=== PATIENT | female | born 1955 | race Caucasian/White ===

== ENCOUNTER 2025-05-01 06:45 | Day surgery (SDC) | payer OTHER, MEDICAID ==
[2025-05-01] VITALS (7 sets, daily range): BP systolic 108–115; BP diastolic 62–69; PULSE 71–82; RESP 14–18; O2SAT 96–99
[~2025-05-01] VITALS: Ht 162.6 cm; Wt 95.7 kg
[~2025-05-01 06:45] MED LIST: ASPI-543 PO; ATOR20TA50 PO; BRIM0.159 OP; DICL1.3P TD; ESTR0.022 TD; FENO145T27 PO; GABA-1308 PO; GLIP5TAB21 PO; KETO2CRE4 TOP; LATA0.008 EACHEYE; LISI20TA56 PO; MAGN400T40 PO; MEDR10TA9 PO; METH-1181 PO; METO25TA93 PO; PANT40TA2 PO; TIZA4CAP PO
[2025-05-01] MEDS: IODIXANOL 320MG/ML 100ML BTL IV ONE ×2 (07:54→08:46)
[2025-05-01] MEDS: HEPARIN IN NS 1000Units/500mL 1,500 ML ONE (07:54)
[2025-05-01] MEDS: VERAPAMIL 2.5MG/ML INJ 2ML VIAL IV ONE (07:57)
[2025-05-01] MEDS: ANGIOMAX 250 MG VIAL IV ONE (07:57)
[2025-05-01] MEDS: MIDAZOLAM HCL 2MG/2ML 2ml VIAL (1mg/ml) ONE (07:57)
[2025-05-01] MEDS: HEPARIN SODIUM (PORCINE) 5000 UNITS/ML 1ML VIAL ONE (07:57)
[2025-05-01] MEDS: fentaNYL CITRATE 100 MCG/2 ML VL ONE (07:57)
[2025-05-01] MEDS: LIDOCAINE 2%HCL (LOCAL ANESTH.) INJ 20ML MDV ONE (07:57)
[2025-05-01] MEDS: SODIUM CHL 0.9% 0 ML ONE (07:57)
--- NOTE | 2025-05-01 09:00 | DVHOP2 ---
Operative Report Procedures performed: Left heart catheterization and bilateral coronary angiogram FFR of LAD and also FFR of RCA Moderate sedation Diagnosis: Nonobstructive coronary artery disease LVEF of 55% with normal EDP Cardiac suggestion for management: Optimized medical therapy Lifestyle and risk factor modifications Cardiac-barker, the patient is a low risk patient for moderate risk shoulder surgery Findings: LVEF: 55% LVEDP: 10 mm Hg Left main: Left main was coming off the left sinus of Valsalva. It was free of disease. LAD: LAD was coming off the left main. It provided a large branching diagonal. Proximal LAD had focal 30% lesion. At the junction of mid to distal LAD there was a focal 50% lesion (FFR was performed on this lesion and the result was 0.89 which points to hemodynamically nonsignificant lesion). Other portions of LAD and branches revealed mild diffuse disease. LCX: LCX was coming off the left main. LCX throughout its course and branches revealed minor luminal irregularities. RCA: RCA was coming off the right sinus of Valsalva. It was a dominant vessel and provided RPDA/RPLS. Mid LAD had a focal 35% lesion (FFR was performed and the result was 0.93 which points to hemodynamically nonsignificant lesion). Other portions of RCA and branches revealed minor luminal irregularities. Presentation: Patient is a 69-year-old female who presented to the office with dyspnea on exertion. She is to go for right shoulder surgery. Past medical history includes hypertension, hyperlipidemia, obesity, diabetes mellitus, GERD, DJD (right shoulder), CKD, old history of cholecystectomy/parathyroid adenoma excision/hysterectomy/bilateral oophorectomy/surgery for rectocele and vaginal prolapse. Echocardiogram of December 2024 revealed ejection fraction of 60-65%, normal diastolic function, right ventricle was mildly dilated with preserved systolic function, mild MR/TR and right ventricular systolic pressure of less than 35 mm Hg. Nuclear stress test of January 2025 was abnormal and the patient was sent for cardiac catheterization. Procedure: After obtaining informed consent, the patient was brought to the slab installer. She was prepped and draped in sterile fashion. Right radial artery was used for access site. 1 mg of Versed and 50 mcg of fentanyl were used for moderate sedation. Using Seldinger technique, the right radial artery was accessed and a 6 Filipino slender sheath was inserted into it. 2.5 mg of verapamil and 100 mcg of nitroglycerin were given as a cocktail into right radial sheath. 5000 units of heparin was given peripherally. Five Filipino tiger 4 catheter was used to perform left heart catheterization (obtaining pressures and performing left ventriculography) and bilateral coronary angiography. We did recognize diseases in mid LAD and mid RCA. We decided to proceed to perform FFR. Cathworks FFR was performed and the result for mid LAD lesion was 0.89 (pointing toward a hemodynamically nonsignificant lesion) and the result for mid RCA lesion was 0.93 (pointing to hemodynamically nonsignificant lesion). There was no indication for any transcatheter revascularization. There was no dissection/hematoma/perforation. Total bleeding was less than 10 mL. Patient tolerated the procedure with no complication. Right radial artery access site was managed by deploying TR band. Fluoroscopy time: 1.8 minutes contrast: 26 mL of AMOL Banks MD May 01, 2025 09:00
== END 2025-05-01 11:15 | disposition home or self-care (01) ==
LOC: CATH 06:45
PROVIDERS: ATTEND Internal Medicine Cardiovascular Disease
DX: I25.10 Atherosclerotic heart disease of native coronary artery without angina pectoris (principal); I12.9 Hypertensive chronic kidney disease with stage 1 through stage 4 chronic kidney disease, or unspecified chronic kidney disease; E11.22 Type 2 diabetes mellitus with diabetic chronic kidney disease; N18.9 Chronic kidney disease, unspecified; E66.9 Obesity, unspecified; E78.5 Hyperlipidemia, unspecified; K21.9 Gastro-esophageal reflux disease without esophagitis; M19.011 Primary osteoarthritis, right shoulder; Z90.49 Acquired absence of other specified parts of digestive tract; Z90.710 Acquired absence of both cervix and uterus; Z86.018 Personal history of other benign neoplasm; Z79.82 Long term (current) use of aspirin; Z79.899 Other long term (current) drug therapy; Z88.8 Allergy status to other drugs, medicaments and biological substances; Z87.891 Personal history of nicotine dependence
CPT/HCPCS: 0523T; 93458; C1769; C1894; J1644; J2250; J3010; Q9967; 99152